=== PATIENT | female | born 1975 | race African-American/Black ===

== ENCOUNTER 2021-08-07 17:43 | Emergency (ER) | payer MEDICAID ==
[~2021-08-07] VITALS: Ht 162.6 cm; Wt 62.0 kg
[2021-08-07] MEDS ORDERED: PREDNISONE 20MG TABLET PO STA (17:57)
[2021-08-07] MEDS ORDERED: IPRATROPIUM/ALBUTEROL 0.5-3(2.5)MG/3ML NEB HHN ONE (18:00)
[2021-08-07 22:00] VITALS: BP 134/94
== END 2021-08-07 22:44 | disposition home or self-care (01) ==
LOC: ER 17:43
DX: J45.901 Unspecified asthma with (acute) exacerbation (principal); R06.89 Other abnormalities of breathing; R12 Heartburn; Z88.2 Allergy status to sulfonamides
CPT/HCPCS: 99281